=== PATIENT | female | born 1990 | race Caucasian/White ===

== ENCOUNTER 2025-06-16 12:20 | Emergency (ER) | payer OTHER, SELFPAY ==
[2025-06-16 12:23] VITALS: BP 125/78
--- NOTE | 2025-06-16 12:51 | ED.MUSCINJ ---
HPI-Injury
General
Chief Complaint: Musculo-Skeletal Complaint
Source: patient
Exam Limitations: none
Time Seen by Provider: 06/16/25 12:36
History of Present Illness-Injury
Initial Injury comments:
35-year-old female presents with severe burning stinging discomfort to the left foot and between her 2nd and 3rd toes. This started around 11:00. She went inside and was still having pain and she developed a lightheaded sensation feeling she was
going to pass out. There is no chest pain or shortness of breath. She tried to seek care at the urgent care but she was having trouble getting her words out and she was sent here. No headache no vision change.
Phy Exam
Physical Exam
Physical Exam:
General: Well-appearing female no acute respiratory distress
HEENT: Normal cephalic atraumatic
Heart: Regular rate and rhythm
Lungs: Clear no wheeze
Neurologic exam: Alert and oriented no facial asymmetry or slurred speech good sensation to the feet bilaterally no dysarthria or aphasia
Vascular: 2+ DP pulse bilateral feet brisk Apley refill to the toes
Skin is warm no puncture wounds no erythema no rash
Injury Course
Orders/Labs/Results
Orders:
Orders
06/16/25 12:58
Electrocardiogram (*1) Urgent
Reason for Study: Vertigo / Dizzy
EKG- Treatment ONCE
Complete Blood Count/With Diff Urgent
Comprehensive Metabolic Panel Urgent
Abnormal Lab Results
06/16/25
12:58
RBC 4.08 L 10^6/uL
(4.20-5.40)
Hct 35.5 L %
(37.0-47.0)
Creatinine 0.5 L mg/dL
(0.6-1.0)
06/16/25 12:58
06/16/25 12:58
MDM/Problems Addressed
Differential Diagnosis Includes:
Patient had sudden onset severe pain to the left that was sharp and burning in nature then developed a lightheaded sensation and she was having trouble getting words out at that time. She is back to baseline. She described as lightheadedness
without chest pain. No arrhythmias noted on monitor. Will check formal EKG. No sign of puncture wound insect bite or infection to the foot but question possible neuroma. I suspect episode was more likely a vasovagal episode and otherwise healthy
person
*Pulse Oximetry
SaO2: 99
Oxygen Mode of Delivery: Room air
Patient hypoxic: no
*Critical Care Note
Total Time (30-74mins, 75-104mins- exclusive of procedures): Not Applicable
Update Note
Update Note:
Labs reviewed without significant finding. EKG reviewed personally and shows normal sinus rhythm without ischemic changes. Highly suspect vasovagal episode causing her issues getting her words out. Given the young healthy status do not suspect
CVA or TIA. Reassured patient. Stable for
ED Attending Note
-
Portions of this chart may have been created with voice recognition software.� Occasional wrong word or��sound alike� substitutions may have occurred due to the inherent limitations of voice recognition software.
Discharge Plan
Departure
Patient Disposition: Home (Routine Discharge)
Date of Disposition: 06/16/25
Time of Disposition: 13:40
Patient with high blood pressure during this ER visit?: No
Discharge Problem:
Foot pain, Near syncope
Instructions: Muscle and Bone Pain (DC)
Referrals:
UNKNOWN - PT DOES,NOT KNOW [Family Provider]
Activity Restrictions/Additional Instructions:
You may use Tylenol if needed for pain. Stay hydrated. Please return here for worsening symptoms or persistent issues getting words out. Follow-up with your doctor otherwise
Interventions
Interventions:
*Risk Screen - Suicide Last Done: 06/16/25 12:23
*General Assessment Last Done: 06/16/25 12:23
*Neglect/Abuse Screening Last Done: 06/16/25 12:23
ED-Musculoskeletal Assessment Last Done: 06/16/25 13:03
Discharge Date and Time
Print Language: WELSH
[2025-06-16 13:01] VITALS: BMI 24.6
[2025-06-16 13:05] LABS: Hematocrit 35.5 % (37.0-47.0); Hemoglobin 12.1 g/dL (12.0-16.0); Mean Corp Hgb Conc. 34.1 g/dL (33.0-37.0); Mean Corpuscular Volume 87.0 fL (81.0-99.0); Nucleated Red Blood Cells % 0 %; Platelet Count 307 10^3/uL (130-400); Red Cell Dist. Width 11.8 % (11.5-14.5)
[2025-06-16 13:23] LABS: ALT (SGPT) 15 U/L (0-35); AST (SGOT) 18 U/L (14-36); Albumin 4.5 g/dl (3.5-5.0); Alkaline Phosphatase 39 U/L (38-126); Blood Urea Nitrogen 15 mg/dl (7-17); Calcium 9.5 mg/dl (8.4-10.2); Carbon Dioxide 26 mmol/L (22-30); Chloride 107 mmol/L (98-107); Estimated Creatinine Clearance 97 ml/min; Glucose 89 mg/dl (70-99); Potassium 4.1 mmol/L (3.5-5.1); Sodium 139 mmol/L (135-145); Total Protein 7.4 g/dl (6.3-8.2); eGFR > 60.00
== END 2025-06-16 14:05 | disposition home or self-care (01) ==
LOC: EMR 12:20
PROVIDERS: Physician Assistant; EMERGENCY PHYSICIAN Emergency Medicine
DX: M25.572 Pain in left ankle and joints of left foot (principal); R55 Syncope and collapse
CPT/HCPCS: 99284; 80053; 85025; 93005